=== PATIENT | male | born 1975 | race Caucasian/White ===

== ENCOUNTER 2022-08-06 10:54 | Emergency (ER) | payer OTHER ==
[2022-08-06 11:41] VITALS: BP 126/75; PULSE 67; RESP 18; TEMP 98.4; BMI 27.4
[2022-08-06] MEDS ORDERED: ACETAMINOPHEN 500 MG TABLET (FP) PO ONE (13:09)
[2022-08-06] MEDS ORDERED: KETOROLAC TROMETHAMINE 30 MG/1 ML VIAL IM ONE (13:09)
[2022-08-06] MEDS ORDERED: KETOROLAC TROMETHAMINE 30 MG/1 ML VIAL ONE (13:47)
[2022-08-06] MEDS ORDERED: ACETAMINOPHEN 500 MG TABLET (FP) ONE (13:48)
[2022-08-06 14:51] LABS: THROAT:GRP A STREP NOT DETECTED (NOTDETECTED)
== END 2022-08-06 15:59 | disposition home or self-care (01) ==
LOC: JER 10:54
PROC: 3E023GC Introduction of Other Therapeutic Substance into Muscle, Percutaneous Approach (ICD-10-PCS; principal; 2022-08-06)
DX: J02.8 Acute pharyngitis due to other specified organisms (principal)
CPT/HCPCS: 0241U-QW; 87651; 96372; 99284-25

== ENCOUNTER 2023-02-03 08:37 | Emergency (ER) | payer OTHER ==
[2023-02-03 08:57] VITALS: BP 135/68; PULSE 77; RESP 18; TEMP 97.9; BMI 31.8
[2023-02-03] MEDS ORDERED: KETOROLAC TROMETHAMINE 30 MG/1 ML VIAL IM ONE (09:11)
[2023-02-03] MEDS ORDERED: DEXAMETHASONE SOD PHOSPHATE 10 MG/1 ML VIAL IM ONE (09:13)
[2023-02-03] MEDS ORDERED: KETOROLAC TROMETHAMINE 30 MG/1 ML VIAL ONE (09:20)
[2023-02-03] MEDS ORDERED: DEXAMETHASONE SOD PHOSPHATE 10 MG/1 ML VIAL ONE (09:20)
[2023-02-03 10:20] LABS: THROAT:GRP A STREP NOT DETECTED (NOTDETECTED)
== END 2023-02-03 09:30 | disposition home or self-care (01) ==
LOC: JER 08:37 → JERFT 08:37
PROC: 3E023GC Introduction of Other Therapeutic Substance into Muscle, Percutaneous Approach (ICD-10-PCS; principal; 2023-02-03)
PROC: 3E0233Z Introduction of Anti-inflammatory into Muscle, Percutaneous Approach (ICD-10-PCS; 2023-02-03)
DX: J02.9 Acute pharyngitis, unspecified (principal); Z20.822 Contact with and (suspected) exposure to COVID-19
CPT/HCPCS: 0241U-QW; 87651; 96372; 99284-25; J1100

== ENCOUNTER 2023-05-17 14:23 | Emergency (ER) | payer OTHER ==
[2023-05-17 14:35] VITALS: BP 123/79; PULSE 76; RESP 18; TEMP 98.3; BMI 28.1
== END 2023-05-17 16:01 | disposition home or self-care (01) ==
LOC: JERFT 14:23 → JER 14:23 → JERFT 16:01
DX: R05.9 Cough, unspecified (principal); R50.9 Fever, unspecified
CPT/HCPCS: 99282-25